=== PATIENT | female | born 1985 | race Caucasian/White ===

== ENCOUNTER 2024-10-21 10:58 | Emergency (ER) | payer BC ==
[2024-10-21 11:08] VITALS: BMI 24.0
[2024-10-21] MEDS ORDERED: ACETAMINOPHEN INJECTION 100 ML ONE (12:15)
[2024-10-21 12:16] LABS: ABSOLUTE IMMATURE GRANULOCYTES 0.01 x10^3/uL (0.0-0.031); BASOPHILS # 0.04 x10^3/uL (0.01-0.08); EOSINOPHIL % 1.7 % (0.7-5.8); EOSINOPHILS # 0.11 x10^3/uL (0.04-0.36); MCHC 33.2 g/dl (32.2-35.5); MEAN CELL VOLUME 90.3 fl (79.4-94.8); MEAN PLT VOLUME 9.5 fl (9.4-12.3); MONOCYTE # 0.35 x10^3/uL (0.24-0.86); MONOCYTE % 5.5 % (4.7-12.5); RDW 12.4 % (12.1-16.8)
[2024-10-21] MEDS: ACETAMINOPHEN 1000 MG/100 ML BAG IVPB ONE (12:18)
[2024-10-21] MEDS: SODIUM CHLORIDE 0.9% 500 ML INFUS.BAG IV ONE (12:18)
[2024-10-21 12:24] LABS: INR 1.05 (0.83-1.09); PROTHROMBIN TIME (PATIENT) 11.4 SEC (9.7-13.0)
[2024-10-21 12:27] LABS: ACTIVATED PTT 29.9 SECONDS (25.2-36.5)
[2024-10-21 12:44] LABS: GLUCOSE,RANDOM 143.0 mg/dL (74-106)
[2024-10-21 12:45] LABS: TOT PROT 8.7 g/dl (6.4-8.2)
[2024-10-21 12:50] LABS: CREATININE 0.68 mg/dL (0.55-1.3); SGOT/AST 46.0 U/L (5-34); SGPT/ALT 23.0 U/L (0-55)
[2024-10-21 13:10] LABS: ALK PHOS 74.0 U/L (40-150); CO2 20.0 mmol/L (21-32)
[2024-10-21 14:22] LABS: EPI CELLS 4 /uL (0-25.1); HYALINE CASTS 0 /uL (0-3.1); URINE APPEARANCE CLEAR; URINE BACTERIA 99 /uL (0-1359); URINE BILIRUBIN NEGATIVE (NEGATIVE); URINE COLOR YELLOW; URINE GLUCOSE (UA) NEGATIVE (NEGATIVE); URINE KETONE NEGATIVE (NEGATIVE); URINE LEUK ESTERASE NEGATIVE (NEGATIVE); URINE NITRITE NEGATIVE (NEGATIVE); URINE PROTEIN NEGATIVE (NEGATIVE); URINE RBC 5 /uL (0-23.9); URINE UROBILINOGEN 0.2 mg/dL (0.2-1.0); URINE WBC 1 /uL (0-25.8)
[2024-10-21 14:59] VITALS: BP 122/82; PULSE 70; RESP 19; TEMP 98.1
== END 2024-10-21 15:13 | disposition home or self-care (01) ==
LOC: JER 10:58
PROC: 3E033NZ Introduction of Analgesics, Hypnotics, Sedatives into Peripheral Vein, Percutaneous Approach (ICD-10-PCS; principal; 2024-10-21)
DX: I10 Essential (primary) hypertension (principal); R51.9 Headache, unspecified; H53.149 Visual discomfort, unspecified; R61 Generalized hyperhidrosis; F41.9 Anxiety disorder, unspecified
CPT/HCPCS: 36415; 70450-TC; 76775-TC; 80053; 81003; 84703; 85025; 85610; 85730; 93005; 93010; 99285-25